=== PATIENT | female | born 1950 | race Caucasian/White ===

== ENCOUNTER → 2017-01-25 | Outpatient (CLI) | payer OTHER ==
[~2017-01-25] MED LIST: /METO25TAB OR; /RALO60TA OR; ACET50TA PO; ASPI81TA85 PO; COUM7.5T PO; EVIS1TAB PO; IBUP200C PO; LEVO100T4 PO; LEVO100T5 PO; METO25TA2 PO; METO25TA74 PO; MINERAL OR; MULTIVIT OR; PERC7.5T12 PO
[2017-01-25 10:31] LABS: MEAN CORPUSCULAR HEMOGLOBIN 28.6 pg (27.0-33.0); MEAN CORPUSCULAR HGB CONC 31.9 g/dl (32.0-36.5); MEAN CORPUSCULAR VOLUME 89.7 fl (80.0-96.0); RED CELL DISTRIBUTION WIDTH 12.8 % (11.5-14.5); WHITE BLOOD COUNT 5.9 K/mm3 (4.0-10.0)
[2017-01-25 10:42] LABS: INR 0.93
--- NOTE | 2017-01-25 10:42 | REP ---
Clinical: Sinus tachycardia Technique: PA and lateral Comparison: 02/07/2013 Findings: Mediastinum and cardiac silhouette are stable. Lung osorio demonstrate chronic changes without acute consolidation, effusion, or pneumothorax. Evidence of prior right axillary node dissection. Skeletal structures demonstrate age-related degenerative changes. Impression: Chronic stable changes. No acute cardiopulmonary process. Signed by Hayden Valera MD 01/25/2017 10:33 A
[2017-01-25 10:55] LABS: ALBUMIN 3.5 GM/DL (3.2-5.2); ALBUMIN/GLOBULIN RATIO 1.17 (1.00-1.93); ALKALINE PHOSPHATASE 64 U/L (45-117); ALT/SGPT 14 U/L (12-78); ANION GAP 7 MEQ/L (8-16); AST/SGOT 15 U/L (15-37); BILIRUBIN,TOTAL 0.5 MG/DL (0.2-1.0); BLOOD UREA NITROGEN 18 MG/DL (7-18); CALCIUM LEVEL 8.9 MG/DL (8.8-10.2); CARBON DIOXIDE LEVEL 30 MEQ/L (21-32); CHLORIDE LEVEL 107 MEQ/L (98-107); CREATININE FOR GFR 0.85 MG/DL (0.55-1.02); GLOMERULAR FILTRATION RATE > 60.0 (>45); GLUCOSE, FASTING 87 MG/DL (80-110); POTASSIUM SERUM 4.1 MEQ/L (3.5-5.1); SODIUM LEVEL 144 MEQ/L (136-145); TOTAL PROTEIN 6.5 GM/DL (6.4-8.2)
--- NOTE | 2017-01-25 21:14 | ECGEPIP ---
Stationary ECG Study [facility] Test Date: 2017-01-25 Pat Name: SURJIT LEVIN Department: Room: - Gender: F Director Of Neurology: MAYLIN : 1950 Requested By: Eros Rogers Order Number: [id number] Reading MD: Domo Tolentino Measurements Intervals [place] Rate: 54 P: 51 MN: 159 QRS: -11 QRSD: 103 T: 8 QT: 385 QTc: 365 Interpretive Statements Sinus bradycardia Nonspecific ST-T wave abnormalities No significant change when compared to prior tracing of 02/07/2013 Electronically Signed On 01-25-2017 21:14:07 EDT by Domo Tolentino
== END ==
LOC: M ADMPAT 09:11
PROVIDERS: ATTEND Orthopaedic Surgery
DX: Z01.818 Encounter for other preprocedural examination (principal); M17.11 Unilateral primary osteoarthritis, right knee

== ENCOUNTER 2017-01-31 16:30 | Inpatient (IN) | payer OTHER, MEDICARE ==
[2017-01-25 10:15] VITALS: BP 128/76
--- NOTE | 2017-01-28 09:00 | HPE ---
DATE OF ADMISSION: 02/01/2017 ATTENDING PHYSICIAN: Eros Rogers MD CHIEF COMPLAINT: Right hip pain and stiffness. HISTORY: La is a pleasant 66-year-old female with progressively worsening right hip pain and stiffness. She has failed to improve with conservative management. She has elected for surgery for her continued symptoms with weightbearing activities and activities of daily living. She has consented for a total right hip arthroplasty with Dr. Rogers. Medical optimization pending with DANITA Veliz and is not present for review during today's appointment. CURRENT MEDICATIONS: - levothyroxine 100 mcg daily - Evista 60 mg daily - aspirin 81 mg daily - metoprolol 25 mg daily ALLERGIES: No known drug allergies. MEDICAL HISTORY: Hypothyroid and hypertension. PAST SURGICAL HISTORY: Left total hip arthroplasty, cholecystectomy. FAMILY HISTORY: Father with coronary artery disease. Mother with history of cerebrovascular accident. SOCIAL HISTORY: The patient denies alcohol use and occasionally consumes alcohol. REVIEW OF SYSTEMS: The patient denies fevers, chills, nausea, vomiting, or diarrhea. She denies chest pain, shortness of breath, lightheadedness, headaches, or cough. She denies any recent upper respiratory infection or urinary tract infection symptoms. She does has persistent pain in her right hip with weightbearing activities. EXAMINATION: A well nourished, well developed female in no apparent distress. Neck supple without lymphadenopathy or jugular venous distention. No carotid bruits noted. Lungs clear to auscultation bilaterally. Heart: Regular rate and rhythm. Abdomen: Bowel sounds present. Abdomen soft and nontender to palpation. Musculoskeletal: Inspection of the right hip reveals no gross abnormalities. She is walking with a limp, favoring her right side. The skin is intact. The patient has essentially normal range of motion of the hip with 5/5 strength of the right lower extremity. However, she does have pain in the groin with range of motion. The patient's calf is soft, nontender to palpation with no palpable cords noted. Distally, she is neurovascularly intact. VITAL SIGNS: Blood pressure 150/88, heart rate 68, respiratory rate 14, weight 160.6, height 65.5. LABORATORY DATA: Chest x-ray shows chronic stable changes. No acute cardiopulmonary process. Electrocardiogram (EKG): Sinus bradycardia with nonspecific ST-T wave abnormalities. Urinalysis significant for trace leukocyte esterase and red blood cells elevated at 4 with a small amount of mucus. Urine culture shows no growth. Comprehensive metabolic profile: Fasting glucose 87, BUN 18, creatinine for GFR 0.85. GFR greater than 60. Sodium 144, potassium 4.1, chloride 107, carbon dioxide 30, anion gap decreased at 7, calcium 8.9, AST 15, ALT 14, alkaline phosphatase 64, total bilirubin 0.5, total protein 6.5, albumin 3.5, albumin globulin ratio 1.17. Complete blood count: WBC is 5.9, RBC is 4.42, hemoglobin 12.7, hematocrit 39.6 , platelets 205. Erythrocyte sedimentation rate was 7. Prothrombin time 12.6, INR 0.93. Nasal and sinus culture does show moderate growth of Staphylococcus aureus. DIAGNOSES: 1. Symptomatic osteoarthritis of the right hip with x-rays notable for end- stage degenerative changes. 2. Nasal and sinus culture show moderate growth of Staphylococcus aureus. PLAN: 1. Pending medical optimization by the patient's primary primary care nurse, DANITA Veliz. 2. Will treat per protocol with mupirocin and Hibiclens. [facility]
[~2017-01-31] VITALS: Ht 170.2 cm; Wt 71.2 kg
[2017-02-01] MEDS: LEVOTHYROXINE 0.1 MG TAB (100 MCG) PO SCH (06:00)
[2017-02-01] MEDS ORDERED: BUPIVACAINE HCL 0.25% 30 ML VIAL As Ordered ONE (07:51)
[2017-02-01] MEDS ORDERED: TRANEXAMIC ACID 100 MG/ML 10ML VIAL As Ordered ONE (07:51)
[2017-02-01] MEDS ORDERED: ceFAZolin 1GM INJ (J0690) As Ordered ONE (07:51)
[2017-02-01] MEDS ORDERED: EPINEPHrine INJ 1 MG/ML 1ML VIAL/AMP As Ordered ONE (07:52)
[2017-02-01] MEDS ORDERED: LR 1,000 ML IV SCH ×3 (11:00→14:30)
[2017-02-01] MEDS ORDERED: ceFAZolin SOD 1 GM in D5W MINI-BAG PLUS 50 ML IV ONE (11:00)
--- NOTE | 2017-02-01 11:02 | IPN ---
DATE OF SERVICE: 02/01/2017 Patient seen and examined. She wishes to go ahead with a right total hip arthroplasty. She understands the nature of this, risks of bleeding, infection, damage to nerves, vessels, persistent pain, wear, loosening, dislocation, leg length inequality, blood clots, medical problems, , among others. She wishes to proceed. She has failed conservative management. She has been through a left hip replacement about 4 years ago and has done well with that. So she is well aware of what she anticipates the recovery and the risks, etc.
[2017-02-01] MEDS ORDERED: fentaNYL 100 MCG/2 ML INJECTION (J3010) As Ordered ONE (11:41)
[2017-02-01] MEDS ORDERED: SCOPOLAMINE 1.5 MG TRANSDERMAL As Ordered ONE (12:11)
[2017-02-01] MEDS ORDERED: METOCLOPRAMIDE INJ 10MG/2ML VIAL (J2765) As Ordered ONE (12:51)
[2017-02-01] MEDS ORDERED: PROPOFOL 500 MG/50 ML VIAL As Ordered ONE (12:51)
[2017-02-01] MEDS ORDERED: MIDAZOLAM INJ 2 MG/2 ML VIAL (J2250) As Ordered ONE (12:51)
[2017-02-01] MEDS ORDERED: dexameTHASONE 4 MG/ML 1ML VIAL (J1100) As Ordered ONE (13:08)
[2017-02-01] MEDS ORDERED: ePHEDrine SULFATE 25 MG/5 ML(5MG/ML) SYRINGE As Ordered ONE (13:08)
[2017-02-01] MEDS ORDERED: PHENYLephrine HCL 500 MCG/5 ML (100MCG/ML) SYRINGE (J2370) As Ordered ONE (13:08)
[2017-02-01] MEDS ORDERED: ONDANSETRON 4MG/2ML VIAL (J2405) IV PRN ×2 (14:30→14:45)
[2017-02-01] MEDS ORDERED: PATIENT IS CURRENTLY ON AN ON-Q PAIN BUSTER PAIN RELIEF SYSTEM XX SCH (14:30)
[2017-02-01] MEDS: LR 1,000 ML IV SCH (14:30)
[2017-02-01] MEDS ORDERED: fentaNYL 100 MCG/2 ML INJECTION (J3010) IV PRN (14:30)
[2017-02-01] MEDS ORDERED: HYDROmorphone HCL 1 MG/ML SYRINGE (J1170) IV PRN (14:45)
[2017-02-01] MEDS ORDERED: FLEET ENEMA PR PRN (14:45)
[2017-02-01 15:30] VITALS: BP 188/92
--- NOTE | 2017-02-01 15:41 | CR.PDOC ---
[facility] Consultation Consultation HOSPITALIST CONSULT NOTE Date of consult: 02/01/2017 Referring Provider: Dr. Rogers Reason for Consult: Medical management of chronic conditions HPI: 66-year-old female with hypothyroidism, history of sinus tach, history of breast cancer status post lumpectomy, possible hypertension who underwent right total hip arthroplasty today with Dr. Rogers. Reportedly, there were no surgical complications. However, the recovery room does note that the patient had issues with emesis secondary to the narcotics. The patient is seen in the recovery room , but is still quite sleepy, which has limited her interview. Past medical history: No thyroidism, history of sinus tach, history of breast cancer status post lumpectomy, possible hypertension Past surgical history: Bilateral hip arthroplasties, cholecystectomy, right breast lumpectomy Family history: Father had coronary artery disease. Mother had a CVA. Social history: The patient is an ex-smoker. She smoked a pack a day for approximately 10 years. Allergies: Morphine Review of systems: Review of systems is limited as this patient is still very sleepy after the anesthesia. However, she is able to state that she does not have any chest pain , trouble breathing, or current nausea. She denies any current complaints, and is surprised to learn that her surgery is already over, as she states that she did not feel anything. According to the recovery room staff, the patient had significant emesis with narcotics. Home meds: See below Physical exam: Vital signs: Blood pressure 132/63, HR 74, temperature 97.4, O2 sat 100% on 3 L , RR 18 Gen.: Groggy, but awakens to verbal stimuli, and is able to answer simple questions, no acute distress Eyes: Extraocular movements intact, normal sclera ENT: Moist mucous membranes Cardiovascular:. Periods of regularity, with intermittent pauses on auscultation , which coincide with PVCs on the radiation monitor in the recovery room Lungs: clear to auscultation bilaterally, no rales, rhonchi, or wheeze Abdomen: Soft, NT/ND, normal BS Extremities: Intact pedal pulses Neuro: Oriented to person with normal speech, thinks she is still in the OR and is surprised to find out that her surgery is over Psych: Normal mood with congruent affect Labs and radiology: None to review Assessment and plan: 66-year-old female with hypothyroidism, history of sinus tach, history of breast cancer status post lumpectomy, possible hypertension who underwent right total hip arthroplasty today with Dr. Rogers. We have been consulted for medical management of chronic problems. 1. Hypothyroidism: Continue home Synthroid. 2. History of sinus tach: Continue home metoprolol. 3. Possible hypertension: This is not noted on her anesthesia history, but rather, they note the sinus tachycardia for which she has taken metoprolol the last 4 years. However, the history and physical by the orthopedic does note a history of hypertension. As the patient was seen in the recovery room, and was still very groggy, I was not able to confirm with her whether or not she actually has hypertension. She does report taking metoprolol at home, and at this time, we will continue the metoprolol. 4. Presumed osteoporosis: The patient reports taking Evista at home, which we' ll continue. Again, as the patient was still quite groggy postoperatively, I was unable to confirm whether or not she takes this for osteoporosis, or for her history of breast cancer back in 1992. 5. Postoperative emesis: The recovery room team reports that the patient had significant postoperative emesis with narcotics. At this time, we will schedule Zofran, in an attempt to keep this at bay. DVT prophylaxis: As per the primary team Thank you for this consult. We will continue to follow along with you; as of tomorrow morning, the patient will be followed by Dr. Gross. Vital Signs/I&O Vital Signs Date Time Temp Pulse Resp B/P Pulse Ox O2 Delivery O2 Flow Rate FiO2 02/01/17 14:53 97.4 65 20 154/72 100 Nasal Cannula 3 Allergies Coded Allergies: Morphine and Related (Verified Adverse Reaction, Unknown, 02/01/17) severe vommiting with nausea Home Medications Scheduled Aspirin (Aspir-81) 81 Mg Tab #30 81 MG PO DAILY (Reported) Levothyroxine Sodium (Synthroid) 100 Mcg Tab 100 MCG PO DAILY (Reported) Metoprolol Succinate (Metoprolol Succinate ER) 25 Mg Tab 25 MG PO DAILY ( Reported) Raloxifene Hydrochloride (Evista) 60 Mg Tab 60 MG PO DAILY (Reported) ARIADNA HEADLEY Feb 01, 2017 15:41
[2017-02-01 16:00] VITALS: BP 171/75
[2017-02-01] MEDS: RALOXIFENE HCL (EVISTA) 60 MG TAB PO SCH (16:15)
[2017-02-01] MEDS: ACETAMINOPHEN TAB 650MG DOSE (2X325MG) PO PRN ×2 (16:15→23:37)
[2017-02-01 17:00] VITALS: BP 176/76
[2017-02-01] MEDS ORDERED: WARFARIN SOD 5 MG TAB PO SCH (17:00)
[2017-02-01 18:00] VITALS: BP 158/68
[2017-02-01] MEDS: ONDANSETRON 4 MG ORAL DISINTEGRATING TAB (S0181) PO SCH (18:00)
[2017-02-01 19:00] VITALS: BP 153/67
[2017-02-01 20:00] VITALS: BP 158/70
[2017-02-01] MEDS: ceFAZolin SOD 1 GM in D5W MINI-BAG PLUS 50 ML IV SCH (20:22)
--- NOTE | 2017-02-01 21:24 | RO ---
DATE OF PROCEDURE: 02/01/2017 PREOPERATIVE DIAGNOSIS: Right hip osteoarthritis. POSTOPERATIVE DIAGNOSIS: Right hip osteoarthritis. PROCEDURE: Right total hip arthroplasty using an AML 13.5 +5, 36 ball and a 52 cup. SURGEON: Dr. Eros Rogers COAT CHECKER: ANESTHESIA: Spinal ESTIMATED BLOOD LOSS: 200 mL. COMPLICATIONS: None. INDICATIONS: This is a 66-year-old woman who has had gradually worsening hip pain. She has been through a hip replacement in the past on the other side and did very well and wanted to go through the same procedure. I felt like an AML would fit her canal well; it did well on the other side, so that is what I suggested. She understood the nature of this, the risk of bleeding, infection, damage to nerves, vessels, persistent pain, wear, loosening, dislocation, leg length inequality, blood clots, medical problems, , among others. DESCRIPTION OF PROCEDURE: The patient was taken to the operating room, placed in the left lateral decubitus position on the [place] positioner. All areas were padded appropriately. The right hip was prepped and draped in the usual sterile fashion. Time-out was performed. I then created a longitudinal incision over the lateral aspect of the hip and sharply dissected down through subcutaneous tissue. She did have a fair amount of adipose tissue laterally. I then incised the fascia lesia and exposed the abductors. I then divided the anterior 40% of the abductors off of the hip, gradually externally rotating the femur and exposing the femoral neck and head. This was dislocated without difficulty, and the canal initiating reamer followed by the intramedullary reamers were then used and at 11.5 reamer, I just did not get very good bone purchase so I decided to go up to the 13.5. I felt that we really needed good bony purchase with an AML. The neck cut was then made about a fingerbreadth up from the lesser trochanter and the head was removed. We then removed the soft tissue from around the acetabulum and then sequentially reamed the acetabulum up to a size 51, which had good bleeding bone. I was able to deepen it a fair amount down to the floor. I then chose the 52 cup, which I had used on the other side and impacted it in place and the appropriate amount of anteversion and horizontal tilt and it was well seated. I then irrigated, placed the polyethylene liner, impacted this in place, this was for the 36 ball, and made sure this was well seated. We had irrigated multiple times along the way. At this point, I prepared the canal and sequentially broached up to a size 13.5, which had an excellent fill and fit and placed the trial 1.5 followed by the trial 5. I felt the 1.5 had a little bit too much laxity and soft tissue tension was not quite appropriate, so I selected the 1.5 and was very pleased with this, had excellent stability, excellent flexion internal rotation, extension external rotation. There was a small osteophyte anteriorly, which was removed with a rongeur. The actual AML stem was then inserted, after irrigation, impacted it down. It was seated down to the level of where the broach had been. I placed the +5 ball, 36, impacted it in place and reduced the hip with the medical assistant internal medicine's help. We put the hip through a range of motion. There was minimal shuck in full extension. The soft tissue tension seemed appropriate, and there was excellent stability. I then copiously irrigated, repaired the minimus with #1 Vicryl suture, the TXA solution was placed, the abductor was repaired with #1 Vicryl suture through bony holes. The fascia lesia was repaired with #1 Vicryl suture and then some running Stratafix sutures in each direction. The medical assistant internal medicine helped with this. We then closed the subcu with #2-0 Vicryl, the skin with leopoldo. We irrigated at each level. I placed the PainBuster catheter along the femoral neck after the deep layers were closed. This was primed. The sterile dressing was applied. She was taken to recovery room in stable condition. There were no known complications. The medical assistant internal medicine was instrumental in holding retractors and assisting in reducing and dislocating the hip and in wound closure.
[2017-02-02] VITALS: BP 134/65
[2017-02-02] MEDS: LR 1,000 ML IV SCH (03:50)
[2017-02-02 04:00] VITALS: BP 134/63
[2017-02-02] MEDS: ceFAZolin SOD 1 GM in D5W MINI-BAG PLUS 50 ML IV SCH (04:57)
[2017-02-02] MEDS: ONDANSETRON 4 MG ORAL DISINTEGRATING TAB (S0181) PO SCH ×5 (06:00→23:45)
[2017-02-02] MEDS: LEVOTHYROXINE 0.1 MG TAB (100 MCG) PO SCH (06:13)
[2017-02-02] MEDS: ACETAMINOPHEN TAB 650MG DOSE (2X325MG) PO PRN ×4 (06:13→23:47)
[2017-02-02 06:35] LABS: MEAN CORPUSCULAR HEMOGLOBIN 29.3 pg (27.0-33.0); MEAN CORPUSCULAR HGB CONC 32.7 g/dl (32.0-36.5); MEAN CORPUSCULAR VOLUME 89.6 fl (80.0-96.0); WHITE BLOOD COUNT 8.3 K/mm3 (4.0-10.0)
[2017-02-02 06:40] LABS: INR 1.12
[2017-02-02] MEDS: SENOKOT S TAB PO SCH ×2 (07:46→20:08)
[2017-02-02] MEDS: METOPROLOL SUCC *XL* 25MG TAB (TopROL *XL*) PO SCH (07:46)
[2017-02-02] MEDS: RALOXIFENE HCL (EVISTA) 60 MG TAB PO SCH (07:46)
[2017-02-02] MEDS: HYDROmorphone HCL 1 MG/ML SYRINGE (J1170) IV PRN (07:47)
[2017-02-02] MEDS: MOM 30ML SUSPENSION UDC PO SCH (07:49)
[2017-02-02] MEDS: MIRALAX *UNIT DOSE* 17GM PACKET PO SCH (07:50)
[2017-02-02 10:00] VITALS: BP 138/70
--- NOTE | 2017-02-02 10:50 | REP ---
Right hip two views, post op study: There is a total hip arthroplasty with the components tightly applied and in satisfactory positions alignment both projections. Skin leopoldo are incidentally noted. Signed by Michael Dallas MD 02/02/2017 10:42 A
[2017-02-02 14:00] VITALS: BP 141/61
[2017-02-02] MEDS: traMADol 50 MG TAB PO PRN (16:12)
[2017-02-02] MEDS ORDERED: WARFARIN SOD 5 MG TAB PO ONE (17:00)
[2017-02-02 22:00] VITALS: BP 178/78
[2017-02-03] MEDS: LEVOTHYROXINE 0.1 MG TAB (100 MCG) PO SCH (05:58)
[2017-02-03] MEDS: traMADol 50 MG TAB PO PRN (05:59)
[2017-02-03] MEDS: ONDANSETRON 4 MG ORAL DISINTEGRATING TAB (S0181) PO SCH ×3 (05:59→14:45)
[2017-02-03 06:00] VITALS: BP 175/70
[2017-02-03 07:17] LABS: MEAN CORPUSCULAR HEMOGLOBIN 29.4 pg (27.0-33.0); MEAN CORPUSCULAR HGB CONC 32.9 g/dl (32.0-36.5); MEAN CORPUSCULAR VOLUME 89.2 fl (80.0-96.0); RED CELL DISTRIBUTION WIDTH 12.9 % (11.5-14.5); WHITE BLOOD COUNT 9.8 K/mm3 (4.0-10.0)
[2017-02-03 07:19] LABS: INR 1.29
[2017-02-03 08:15] VITALS: BP 175/70
[2017-02-03] MEDS: SENOKOT S TAB PO SCH (08:15)
[2017-02-03] MEDS: METOPROLOL SUCC *XL* 25MG TAB (TopROL *XL*) PO SCH (08:15)
[2017-02-03] MEDS: RALOXIFENE HCL (EVISTA) 60 MG TAB PO SCH (08:15)
[2017-02-03] MEDS: HYDROmorphone HCL 1 MG/ML SYRINGE (J1170) IV PRN (08:16)
[2017-02-03] MEDS ORDERED: COUM2.5T11 PO (08:52)
[2017-02-03] MEDS ORDERED: TRAM50TA2 PO (08:52)
[2017-02-03] MEDS: MOM 30ML SUSPENSION UDC PO SCH (09:00)
[2017-02-03] MEDS: MIRALAX *UNIT DOSE* 17GM PACKET PO SCH (09:00)
[2017-02-03 14:00] VITALS: BP 130/56
[2017-02-03] MEDS: ACETAMINOPHEN TAB 650MG DOSE (2X325MG) PO PRN (14:45)
[2017-02-03] MEDS ORDERED: WARFARIN SOD 7.5 MG TAB PO ONE (17:00)
== END 2017-02-03 15:15 | disposition home or self-care (01) | DRG 470 ==
LOC: M OR 02-01 10:49 → M MS5PR 02-01 15:00
PROVIDERS: ADMIT Orthopaedic Surgery; ATTEND Orthopaedic Surgery
PROC: 0SRB0J9 Replacement of Left Hip Joint with Synthetic Substitute, Cemented, Open Approach (ICD-10-PCS; principal; 2017-02-01 12:30)
DX: M17.11 Unilateral primary osteoarthritis, right knee (principal); E03.9 Hypothyroidism, unspecified; I10 Essential (primary) hypertension; Z79.82 Long term (current) use of aspirin; Z79.899 Other long term (current) drug therapy; R11.10 Vomiting, unspecified; Z85.3 Personal history of malignant neoplasm of breast